=== PATIENT | male | born 1990 | race Caucasian/White ===

== ENCOUNTER 2016-07-19 21:13 | Emergency (ER) | payer SELFPAY ==
[~2016-07-19] VITALS: Ht 177.8 cm; Wt 81.8 kg
[~2016-07-19 21:13] MED LIST: CLIN150 PO; OXYC1TAB13 PO; SULF-154 PO
[2016-07-19 21:15] VITALS: BP 138/103; PULSE 130; RESP 16; TEMP 98; O2SAT 97
[2016-07-19 22:41] VITALS: BP 140/68; PULSE 100; RESP 16; TEMP 98.2; O2SAT 97
[2016-07-19] MEDS ORDERED: LORazepam 1 MG TAB PO ONE (23:00)
--- NOTE | 2016-07-19 23:25 | PD ---
HPI Chief Complaint: Psychiatric Symptoms Time Seen by Provider: 22:51 Travel History International Travel<30 days: No Contact w/Intl Traveler<30days: No Traveled to known affect area: No History of Present Illness HPI 25-year-old male with history of IVDU here for evaluation of feeling anxious, paranoid, feeling like he is being followed, not able to sleep. Patient admits to using IV drugs injecting amphetamines and Dilaudid, last use was this morning and was Dilaudid. He states his symptoms have been going on for the last 2 weeks after injecting amphetamine, however the patient believes he was given a "photographic laboratory technician "which he believes was mixed with bleach. He states that after taking this drug 2 weeks ago, he attempted to drive, however the lines in the road were blurred, and the next thing he remembers is being woken up in a parking lot by local law enforcement. Since that time he is been feeling like he is being followed, is feeling very anxious, having episodes of feeling angry and enraged. No fevers or chills. Currently he has no physical complaints and feels well. He is denying suicidal or homicidal ideation. [facility] Past Medical History Hepatitis: Yes (hep c) Immunizations Current: Yes Tetanus Vaccination: Unknown Influenza Vaccination: No Past Surgical History Surgical History: No Previous Surgery Social History Alcohol Use: Yes Tobacco Use: Yes Substance Use: Yes (iv drug use) Allergies-Medications (Allergen,Severity, Reaction): Coded Allergies: No Known Allergies (Verified , 03/08/10) Reported Meds & Prescriptions Reported Meds & Active Scripts Active No Active Prescriptions or Reported Medications Review of Systems Except as stated in HPI: all other systems reviewed are Neg Physical Exam Narrative GENERAL: Well-developed, well-nourished, awake, alert, sitting comfortably on chair, no acute distress. SKIN: Warm and dry. Tract sampson on bilateral anterior forearms without erythema or warmth, no signs of cellulitis or lymphangitis. No fluctuance or induration. HEAD: Atraumatic. Normocephalic. EYES: Pupils equal and round. No scleral icterus. No injection or drainage. ENT: Mucous membranes pink and moist. NECK: Trachea midline. No JVD. No nuchal rigidity. CARDIOVASCULAR: Regular rate and rhythm. No murmur appreciated. RESPIRATORY: No accessory muscle use. Clear to auscultation. Breath sounds equal bilaterally. GASTROINTESTINAL: Abdomen soft, non-tender, nondistended. MUSCULOSKELETAL: No obvious deformities. No clubbing. No cyanosis. No edema. NEUROLOGICAL: Awake and alert. No obvious cranial nerve deficits. Motor grossly within normal limits. Normal speech. PSYCHIATRIC: Appropriate mood and affect; insight and judgment normal. Data Data Last Documented VS Vital Signs Date Time Temp Pulse Resp B/P Pulse Ox O2 Delivery O2 Flow Rate FiO2 07/20/16 00:20 90 16 126/60 98 Room Air 07/19/16 22:41 98.2 Orders Complete Blood Count With Diff (07/19/16 23:00) Comprehensive Metabolic Panel (07/19/16 23:00) Psych Screen (07/19/16 23:00) Drug Screen, Random Urine (07/19/16 23:00) Lorazepam (Ativan) (07/19/16 23:00) Labs Laboratory Tests Test 07/19/16 07/19/16 23:15 23:25 White Blood Count 14.8 TH/MM3 Red Blood Count 4.92 MIL/MM3 Hemoglobin 13.9 GM/DL Hematocrit 41.9 % Mean Corpuscular Volume 85.2 FL Mean Corpuscular Hemoglobin 28.3 PG Mean Corpuscular Hemoglobin 33.2 % Concent Red Cell Distribution Width 15.4 % Platelet Count 260 TH/MM3 Mean Platelet Volume 7.1 FL Neutrophils (%) (Auto) 71.0 % Lymphocytes (%) (Auto) 17.5 % Monocytes (%) (Auto) 10.0 % Eosinophils (%) (Auto) 1.2 % Basophils (%) (Auto) 0.3 % Neutrophils # (Auto) 10.5 TH/MM3 Lymphocytes # (Auto) 2.6 TH/MM3 Monocytes # (Auto) 1.5 TH/MM3 Eosinophils # (Auto) 0.2 TH/MM3 Basophils # (Auto) 0.0 TH/MM3 CBC Comment DIFF FINAL Differential Comment Sodium Level 138 MEQ/L Potassium Level 3.8 MEQ/L Chloride Level 99 MEQ/L Carbon Dioxide Level 33.9 MEQ/L Anion Gap 5 MEQ/L Blood Urea Nitrogen 12 MG/DL Creatinine 0.75 MG/DL Estimat Glomerular Filtration 126 ML/MIN Rate Random Glucose 104 MG/DL Calcium Level 8.8 MG/DL Total Bilirubin 0.3 MG/DL Aspartate Amino Transf 40 U/L (AST/SGOT) Alanine Aminotransferase 77 U/L (ALT/SGPT) Alkaline Phosphatase 106 U/L Total Protein 8.0 GM/DL Albumin 3.5 GM/DL Urine Opiates Screen POS Urine Barbiturates Screen NEG Urine Amphetamines Screen NEG Urine Benzodiazepines Screen NEG Urine Cocaine Screen NEG Urine Cannabinoids Screen NEG MDM Medical Decision Making Medical Screen Exam Complete: Yes Emergency Medical Condition: Yes Differential Diagnosis Drug-induced mood disorder, acute psychosis, paranoia, schizophrenia, acute kian, meningitis/encephalitis/bacteremia unlikely Narrative Course Initial vital signs show heart rate of 130 which improved to 90 without any intervention. Blood pressure is 126/60, pulse ox 98% on room air, oral temp of 98.2F. CBC shows to be BC 14.8, otherwise unremarkable. CMP is remarkable for bicarbonate 33.9, otherwise unremarkable. Urine drug screen is positive for opiates, negative for all other drugs tested. Patient was given a dose of Ativan and is resting comfortably. He was made aware of all findings. He is medically cleared for psychiatric evaluation regarding his feelings of anxiety, paranoia, and hallucinations, and disposition by them. Diagnosis Primary Impression: Anxiety Additional Impressions: Substance abuse Paranoia Scripts No Active Prescriptions or Reported Meds Armin Varma MD Jul 19, 2016 23:25
[2016-07-19 23:29] LABS: AUTOMATED NEUTROPHIL # 10.5 TH/MM3 (1.8-7.7); BASOPHIL % 0.3 % (0.0-2.0); EOSINOPHIL # 0.2 TH/MM3 (0-0.4); EOSINOPHIL % 1.2 % (0.0-4.0); HEMATOCRIT 41.9 % (39.0-51.0); HEMO FLAGS DIFF FINAL; LYMPH % 17.5 % (9.0-44.0); LYMPHOCYTE # 2.6 TH/MM3 (1.0-4.8); MEAN CELL VOLUME 85.2 FL (80.0-100.0); MEAN CORPUSCULAR HEMOGLOBIN 28.3 PG (27.0-34.0); MEAN CORPUSCULAR HGB CONC 33.2 % (32.0-36.0); PLATELET COUNT 260 TH/MM3 (150-450); RED BLOOD COUNT 4.92 MIL/MM3 (4.50-5.90); RED CELL DISTRIBUTION WIDTH 15.4 % (11.6-17.2); WHITE BLOOD COUNT 14.8 TH/MM3 (4.0-11.0)
[2016-07-19 23:50] LABS: ALT (GPT) 77 U/L (12-78); ANION GAP 5 MEQ/L (5-15); AST (GOT) 40 U/L (15-37); BICARBONATE 33.9 MEQ/L (21.0-32.0); BLOOD UREA NITROGEN 12 MG/DL (7-18); CHLORIDE 99 MEQ/L (98-107); GLOMERULAR FILTRATION RATE 126 ML/MIN (>89); POTASSIUM 3.8 MEQ/L (3.5-5.1); SODIUM (NA) 138 MEQ/L (136-145)
[2016-07-19 23:53] LABS: ALKALINE PHOSPHATASE 106 U/L (45-117); TOTAL BILIRUBIN ADULT 0.3 MG/DL (0.2-1.0)
[2016-07-19 23:58] LABS: AMPHETAMINE, URINE NEG (NEG); BARBITURATES, URINE NEG (NEG); COCAINE, URINE NEG (NEG)
[2016-07-20 00:20] VITALS: BP 126/60; PULSE 90; RESP 16; O2SAT 98
[2016-07-20 04:30] VITALS: BP 124/62; PULSE 89; RESP 16; O2SAT 98
== END 2016-07-20 07:09 | disposition left against medical advice (07) ==
LOC: NEPA 21:13
DX: F41.9 Anxiety disorder, unspecified (principal); F22 Delusional disorders; B19.20 Unspecified viral hepatitis C without hepatic coma; F11.20 Opioid dependence, uncomplicated; F10.10 Alcohol abuse, uncomplicated; F12.10 Cannabis abuse, uncomplicated
CPT/HCPCS: 80053; 80307; 85025; 99284